=== PATIENT | male | born 1985 | race Caucasian/White ===

== ENCOUNTER 2019-09-29 07:41 | Outpatient (CLI) | payer OTHER, SELFPAY ==
--- NOTE | ~2019-09-29 | US_ITS ---
EXAMINATION: US right upper quadrant DATE: 09/29/2019 08:18 INDICATION: Abnormal liver function tests. TECHNIQUE: Multiple grayscale and Doppler ultrasound images of the abdomen were obtained. COMPARISON: None FINDINGS: The visualized portions of the head and body of the pancreas are normal. There is diffuse h epatic steatosis. There is normal flow in main portal vein. The gallbladder is normal in size. No gal lstones or gallbladder wall thickening. There was no sonographic Nelson sign. The common duct is norm al and measures 4 mm. IMPRESSION: 1. Diffuse hepatic steatosis. Reviewed, dictated and finalized at location A. G [employer]W [employer]PERATOR
== END 2019-09-29 07:42 ==
LOC: MICIMG 07:42
PROVIDERS: Visit Provider Internal Medicine
DX: R74.8 Abnormal levels of other serum enzymes (principal); K76.0 Fatty (change of) liver, not elsewhere classified
CPT/HCPCS: 76705